=== PATIENT | female | born 1980 | race Caucasian/White ===

== ENCOUNTER → 2017-05-14 | Outpatient (CLI) | payer OTHER ==
--- NOTE | 2017-05-14 10:41 | US ---
EXAMINATION TYPE: US carotid duplex BILAT DATE OF EXAM: 05/14/2017 COMPARISON: NONE CLINICAL HISTORY: R07.9 Chest Pain, R00.2 Palpitations. Chest pain, occasional light headedness EXAM MEASUREMENTS: RIGHT: Peak Systolic Velocity (PSV) cm/sec ----- Right CCA: 114.8 ----- Right ICA: 93.3 ----- Right ECA: 92.6 ICA/CCA ratio: 0.8 RIGHT: End Diastole cm/sec ----- Right CCA: 40.9 ----- Right ICA: 41.9 ----- Right ECA: 20.9 LEFT: Peak Systolic Velocity (PSV) cm/sec ----- Left CCA: 101.8 ----- Left ICA: 95.1 ----- Left ECA: 67.3 ICA/CCA ratio: 0.9 LEFT: End Diastole cm/sec ----- Left CCA: 30.6 ----- Left ICA: 41.0 ----- Left ECA: 14.2 VERTEBRALS (direction of flow): Right Vertebral: Antegrade Left Vertebral: Antegrade Rhythm: Normal Limited visualization of bilateral mid and distal ICA and ECA due to carotid bifurcation being very high in patient's neck. Grayscale, color Doppler, spectral Doppler imaging performed of the carotid arteries. No elevated velocities, no significant stenosis. IMPRESSION: No hemodynamic significant stenosis of the proximal internal carotid arteries bilaterall y by Doppler criteria, an indirect measurement of carotid stenosis. Limitations as described.
--- NOTE | 2017-05-14 17:03 | P.STRESS ---
- Stress Test Note Stress Test Results/Findings: Exam Performed: stress echo exercise Exam Date: 05/14/17 Reason for Exam: CHEST PAIN Height: 5 ft 2 in Weight: 81.647 kg Protocol: NORMAN Stage: 3 Duration of Exercise: 9:00 Resting Heart Rate: 81 Resting Blood Pressure: 136/67 Maximum Achieved Heart Rate: 159 Maximum Achieved Blood Pressure: 160/74 85% PMHR: 155 100% PMHR: 182 METS: 10.3 Technologist Comment: Stress Test Results/Findings: This is a 36-year-old female being evaluated for symptoms of chest pain and shortness of breath. Baseline EKG showed sinus rhythm with normal TX interval and QRS duration. Blood pressure at rest is 136/67 with pulse rate of 81. Patient walked on the Norman protocol for 9 minutes achieving a maximum heart rate of 159 with a blood pressure 1 5478. EKGs taken during and after exercise did not reveal any acute changes of ischemia. Patient did not experience any chest pain. Echo data: Baseline echo images showed normal wall motion and thickening. Exercise echo images showed augmentation of the wall motion and thickening in all the segments. Final impression: #1. Negative stress test #2. Negative stress echo.
== END | disposition home or self-care (01) ==
LOC: RADUSMAIN 09:06
PROVIDERS: ATTEND Family Medicine
DX: R55 Syncope and collapse (principal); R00.2 Palpitations; R07.9 Chest pain, unspecified; R06.00 Dyspnea, unspecified
CPT/HCPCS: 93017; 93350; 93880

== ENCOUNTER 2024-01-02 15:05 | Emergency (ER) | payer OTHER ==
[2024-01-02 15:37] VITALS: TEMP 98.1
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
[2024-01-02 16:38] VITALS: BP 130/81; PULSE 80; RESP 18
== END 2024-01-02 16:48 | disposition home or self-care (01) ==
LOC: EC 15:05
CPT/HCPCS: 72050; 72070; 99284